=== PATIENT | male | born 1975 | race Caucasian/White ===

== ENCOUNTER 2016-03-30 14:48 | Emergency (ER) | payer OTHER ==
--- NOTE | 2016-03-30 16:38 | ED ORDER SUMMARY ---
..... Patient: BESSIE MYLES JR OrderSheet [facility] VisitID: [id number] [address] [place] [address] 41y, M Registration Date/Time: 03/30/2016 ORDER SHEET Weight: 129.2 kg (stated) Allergies: None GENERAL ORDERS: Wound Irrigation (15:43 03/30/2016 EKoroleva P.A.-C) (16:16 LNations ER Tech1) Finger Left (2) Urgent (15:43 03/30/2016 EKoroleva P.A.-C) (16:01 MCampbell) MEDICATION ORDERS: Tdap IM 0.5 mL (NOW, per protocol) (15:42 03/30/2016 EKoroleva P.A.-C) (17:04 Brigida R.N.) Ancef IM 2 gm (NOW) (17:11 03/30/2016 EKoroleva P.A.-C) (18:04 Lam) IV FLUIDS: ORDER SHEET NOTES: [Electronically signed by Janel Herrera (18:40 03/30/2016)] [Electronically signed by Larisa LoboARobin-Rema (18:59 03/30/2016)] [Electronically locked/signed by Janel Herrera (18:40 03/30/2016)]
--- NOTE | 2016-03-30 16:38 | ED NURSING NOTES ---
Clinical Report - Nurses [facility] [address] [place] [address] 03/30/2016 14:51 [id number] Triage time 15:08 Mar 30 2016. Acuity: LEVEL 4. Chief Complaint: INJURY TO LEFT HAND. 15:13 03/30/16. Alert. No acute distress. ALISA COMA SCORE: [place] Coma Scale: 15- eyes open spontaneously (4); best verbal response- oriented x 4 (5); best motor response- obeys commands (6). --15:13 Olinda Cole 15:08 03/30/16. BP: 148/107. HR: 85. RR: 18. O2 saturation: 99% on room air. Temp: 98.1 F (oral). Pain level now: 08/30. --15:13 Olinda Cole. Weight: 129.2 kg stated. Height/Length: 70 inches Per Patient. BMI: 40.9. --15:11 Olinda Cole. Medications Losartan Potassium Oral 25 mg, daily. --15:10 Olinda Cole MetFORMIN HCl Oral. --15:10 Olinda Cole. Medication/allergy information source: the patient. --15:13 Olinda Cole. Allergies None. --15:10 Olinda Cole. History Arrived by private vehicle. Historian: patient. Unaccompanied. Primary physician ([place]). This occurred just prior to arrival. Occurred at work. He sustained a laceration. 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 No neck pain, weakness or numbness. 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 PAST MEDICAL HX: Diabetes mellitus. Hypertension. No history of heart disease or lung disease. Tetanus immunization status is not up-to-date. SOCIAL HX: Never smoker. Alcohol use; consumes two beers a week. No drug use. FALL RISK ASSESSMENT: Fall risk assessment completed. No fall risk identified. NUTRITIONAL RISK ASSESSMENT: The nutritional risk assessment revealed no deficiencies. FUNCTIONAL ASSESSMENT: Functional assessment: no impairments noted. LEARNING NEEDS ASSESSMENT: The learning needs assessment revealed no barriers. SKIN INTEGRITY ASSESSMENT: Skin integrity risk assessment completed. No skin integrity risk identified. --15:13 Olinda Cole. PROBLEMS: Lumbar Strain. Benign Positional Vertigo. Hypertension. Diabetes Mellitus. --15:10 Olinda Cole. ADDITIONAL SURGERIES: Cyst removed from wrist. --15:10 Olinda Cole. Assessment The patient states feels the same. GENERAL / NEURO / PSYCH: Alert. Oriented X 4. Appears in no acute distress. Patient appears calm and cooperative. RESPIRATORY: Respirations not labored. CVS: Capillary refill less than 2 seconds. SKIN: Mucous membranes are pink. Skin is warm and dry. --15:13 Olinda Cole. Interventions ID band on patient. --15:13 Olinda Cole. PHYSICAL ASSESSMENT Ambulatory to room. GENERAL / NEURO / PSYCH: Oriented X 4. Alert. Appears in no acute distress. EXTREMITIES: Capillary refill is less than 2 seconds in the extremities. Extremity pulses are within normal limits. SKIN: Skin is warm and dry. --17:06 Daya Dudley R.N. NURSING PROGRESS NOTES Wound cleansed with sterile saline and chlorhexidine. --15:58 Hillary Dominique ER Tech1 Aluminum-foam splint applied by tech (ointment to finger splint held with coban). --16:17 Hillary Dominique ER Tech1 17:04 03/30/2016 TDAP IM 0.5 mL given. (Lot#: [id number], expiration date: 11/25/2017, Slurry Control Operator Helper: sanofi pasteur). Given in the left deltoid. --17:04 Daya Dudley R.N. 18:04 03/30/2016 Ancef (CeFAZolin Sodium) IM 2 gm given. Given in the right gluteus fabiola and left gluteus fabiola (split dose). Allergies verified and confirmed 5 rights. --18:04 Janel Herrera The patient has had no adverse reaction. Overall patient status is the same- he states feels the same. --18:39 Janel Herrera. DISPOSITION / DISCHARGE Departure time: 17:Mar 30 2016. Condition at departure: improved and stable. No learning barriers present. Discharge instructions provided and reviewed with the patient. Patient verbalized understanding. Written instructions provided in Stateless. The patient was discharged by the physician. He was discharged home and accompanied by spouse. He left the Emergency Department ambulatory and via private vehicle. Patient driving. --17:07 Daya Dudley R.N. Condition at departure: unchanged and stable. No learning barriers present. Discharge instructions provided and reviewed with the patient. Reviewed medication(s). Work note given. Patient verbalized understanding. Written instructions provided in Stateless. The patient was discharged by the physician minister assistant. He was discharged home. He left the Emergency Department ambulatory and via private vehicle. Patient driving. --18:40 Janel Herrera Departure time: 1837. --18:40 Janel Herrera. Locked/Released at 03/30/2016 18:40 by Janel Herrera,
--- NOTE | 2016-03-30 16:38 | ED NURSING NOTES ---
Clinical Report - Nurses [facility] [address] [place] [address] 03/30/2016 14:51 [id number] TRI[facility] Triage time 15:08 Mar 30 2016. Acuity: LEVEL 4. Chief Complaint: INJURY TO LEFT HAND. 15:13 03/30/16. Alert. No acute distress. ALISA COMA SCORE: [place] Coma Scale: 15- eyes open spontaneously (4); best verbal response- oriented x 4 (5); best motor response- obeys commands (6). --15:13 Olinda Cole 15:08 03/30/16. BP: 148/107. HR: 85. RR: 18. O2 saturation: 99% on room air. Temp: 98.1 F (oral). Pain level now: 08/30. --15:13 Olinda Cole. Weight: 129.2 kg stated. Height/Length: 70 inches Per Patient. BMI: 40.9. --15:11 Olinda Cole. Medications Losartan Potassium Oral 25 mg, daily. --15:10 Olinda Cole MetFORMIN HCl Oral. --15:10 Olinda Cole. Medication/allergy information source: the patient. --15:13 Olinda Cole. Allergies None. --15:10 Olinda Cole. History Arrived by private vehicle. Historian: patient. Unaccompanied. Primary physician ([place]). This occurred just prior to arrival. Occurred at work. He sustained a laceration. 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 No neck pain, weakness or numbness. 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 PAST MEDICAL HX: Diabetes mellitus. Hypertension. No history of heart disease or lung disease. Tetanus immunization status is not up-to-date. SOCIAL HX: Never smoker. Alcohol use; consumes two beers a week. No drug use. FALL RISK ASSESSMENT: Fall risk assessment completed. No fall risk identified. NUTRITIONAL RISK ASSESSMENT: The nutritional risk assessment revealed no deficiencies. FUNCTIONAL ASSESSMENT: Functional assessment: no impairments noted. LEARNING NEEDS ASSESSMENT: The learning needs assessment revealed no barriers. SKIN INTEGRITY ASSESSMENT: Skin integrity risk assessment completed. No skin integrity risk identified. --15:13 Olinda Cole. PROBLEMS: Lumbar Strain. Benign Positional Vertigo. Hypertension. Diabetes Mellitus. --15:10 Olinda Cole. ADDITIONAL SURGERIES: Cyst removed from wrist. --15:10 Olinda Cole. Assessment The patient states feels the same. GENERAL / NEURO / PSYCH: Alert. Oriented X 4. Appears in no acute distress. Patient appears calm and cooperative. RESPIRATORY: Respirations not labored. CVS: Capillary refill less than 2 seconds. SKIN: Mucous membranes are pink. Skin is warm and dry. --15:13 Olinda Cole. Interventions ID band on patient. --15:13 Olinda Cole. PHYSICAL ASSESSMENT Ambulatory to room. GENERAL / NEURO / PSYCH: Oriented X 4. Alert. Appears in no acute distress. EXTREMITIES: Capillary refill is less than 2 seconds in the extremities. Extremity pulses are within normal limits. SKIN: Skin is warm and dry. --17:06 Daya Dudley R.N. NURSING PROGRESS NOTES Wound cleansed with sterile saline and chlorhexidine. --15:58 Hillary Dominique ER Tech1 Aluminum-foam splint applied by tech (ointment to finger splint held with coban). --16:17 Hillary Dominique ER Tech1 17:04 03/30/2016 TDAP IM 0.5 mL given. (Lot#: [id number], expiration date: 11/25/2017, Template Clerk: sanofi pasteur). Given in the left deltoid. --17:04 Daya Dudley R.N. 18:04 03/30/2016 Ancef (CeFAZolin Sodium) IM 2 gm given. Given in the right gluteus fabiola and left gluteus fabiola (split dose). Allergies verified and confirmed 5 rights. --18:04 Janel Herrera The patient has had no adverse reaction. Overall patient status is the same- he states feels the same. --18:39 Janel Herrera. DISPOSITION / DISCHARGE Departure time: 17:Mar 30 2016. Condition at departure: improved and stable. No learning barriers present. Discharge instructions provided and reviewed with the patient. Patient verbalized understanding. Written instructions provided in Liberian. The patient was discharged by the physician. He was discharged home and accompanied by spouse. He left the Emergency Department ambulatory and via private vehicle. Patient driving. --17:07 Daya Dudley R.N. Condition at departure: unchanged and stable. No learning barriers present. Discharge instructions provided and reviewed with the patient. Reviewed medication(s). Work note given. Patient verbalized understanding. Written instructions provided in [place]ian. The patient was discharged by the physician assistant associate full professor. He was discharged home. He left the Emergency Department ambulatory and via private vehicle. Patient driving. --18:40 Janel Herrera Departure time: 1837. --18:40 Janel Herrera. Locked/Released at 03/30/2016 18:40 by Janel Herrera,
--- NOTE | 2016-03-30 16:38 | ED ORDER SUMMARY ---
..... Patient: BESSIE MYLES JR OrderSheet [facility] VisitID: [id number] [address] [place] [address] 41y, M Registration Date/Time: 03/30/2016 ORDER SHEET Weight: 129.2 kg (stated) Allergies: None GENERAL ORDERS: Wound Irrigation (15:43 03/30/2016 EKoroleva P.A.-C) (16:16 LNations ER Tech1) Finger Left (2) Urgent (15:43 03/30/2016 EKoroleva P.A.-C) (16:01 MCampbell) MEDICATION ORDERS: Tdap IM 0.5 mL (NOW, per protocol) (15:42 03/30/2016 EKoroleva P.A.-C) (17:04 Brigida R.N.) Ancef IM 2 gm (NOW) (17:11 03/30/2016 EKoroleva P.A.-C) (18:04 Lam) IV FLUIDS: ORDER SHEET NOTES: [Electronically signed by Janel Herrera (18:40 03/30/2016)] [Electronically signed by Larisa LoboARobin-Rema (18:59 03/30/2016)] [Electronically locked/signed by Janel Herrera (18:40 03/30/2016)]
--- NOTE | 2016-03-30 16:38 | ED CLINICAL REPORT ---
Clinical Report - Physicians/Mid Levels [facility] [address] [place] [address] 03/30/2016 14:51 [id number] Time Seen: 1529Mar 30 2016. Arrived- By private vehicle. Historian- patient. HISTORY OF PRESENT ILLNESS Chief Complaint: Injury to the left index finger. The injury happened just prior to arrival. The patient sustained a crush injury. Occurred at work. Patient is experiencing mild pain. Patient denies injury to the head or neck. 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 Reports some pain with movement. Bleeding. Dressing applied. No prior injury to the area. Denies any other injury. Denies any loss of sensation.). REVIEW OF SYSTEMS The patient sustained a laceration. No numbness. All systems otherwise negative, except as recorded above. PAST HISTORY The patient's dominant hand is the right. He has not had a prior injury to the same area. Tetanus immunization status is unknown. SOCIAL HISTORY Never smoker. Alcohol use. No drug use. ADDITIONAL NOTES The nursing notes have been reviewed. PHYSICAL EXAM Vital Signs: 03/30/2016 15:08 BP: 148/107. HR: 85. RR: 18. O2 saturation: 99%. Temp: 98.1 F. Pain level now: 7/10. Appearance: Alert. Head: Head atraumatic. CVS: Normal heart rate and rhythm. Heart sounds normal. Respiratory: No respiratory distress. Breath sounds normal. Skin: Skin warm. Extremities: Left hand web space. No tenderness or swelling. Left index finger: mild tenderness and 1.0 cm laceration of the dorsal aspect and PIP joint. No puncture wound. No limitation in movement. No subungual hematoma or amputation present. No wrist injury. Neuro, Vascular and Tendons: Vascular status intact. Motor intact. LABS, X-RAYS, AND EKG Lt UE Digits X-ray: (IMPRESSION: 1. Chip fracture proximal phalanx second digit. Electronically Final signed by:Sundar Guillen MD 03/30/2016 4:54:15 PM). PROGRESS AND PROCEDURES Laceration Repair: Time: 2016. Location: left index finger. Time-out completed immediately before the procedure. Length: 1.5cm. Complexity: simple (local anesthesia used and sutured). Wound depth/shape- linear and involving fascia. Wound is clean. No sensory deficit distally. Tendon not examined. Anesthesia provided by digital block using 0.25% Marcaine. Prepped with Betadine. Wound explored, cleansed and irrigated. Subcutaneous closure: interrupted 5-0 (5 sutures non absorb). Post-procedure: he is stable and there are no complications. Bleeding is controlled and neuro-vascular status is intact distal to the wound. Dressing applied. Tetanus immunization given. Splint Application: Time: 1800. Aluminum-foam dorsal splint applied to index finger. Splint applied by tech with direct supervision by me. Reassessed extremity following splint application. Neurovascular intact. Follow-up recommended within 3 days. Course of Care: suspectd fx, now open fx, given im abx, patient understands need for ortho f/u full rom, good sensation and distal strength. Patient is stable. Symptoms better. Patient/family counseled. Disposition: Discharged. CLINICAL IMPRESSION Open middle phalanx fracture of the left index finger. Single deep laceration to the left index finger. INSTRUCTIONS Elevate affected areas above chest level. Protect wound and keep wound area clean. Apply bacitracin twice daily. Sutures should be removed in six days. Limit use of your left hand for nine days. (ORTHO Follow up, do not remove splint: [phone]). Prescription Medications: Hydrocodone/APAP 5mg / 325mg: take 1 orally every 6 hours. Dispense twelve (12). No refill. Cephalexin 500 mg: take 1 capsule orally every 8 hours for 10 days. No refill. OTC Medications: Take OTC medications according to label instructions. Available over the counter. Acetaminophen (available over the counter): take according to label instructions. Motrin (available over the counter): take according to label instructions. Follow-up: Follow up with your doctor in six days for suture removal. (Electronically signed by Larisa Lobo P.A.-C 03/30/2016 18:59)
--- NOTE | 2016-03-30 16:38 | ED CLINICAL REPORT ---
Clinical Report - Physicians/Mid Levels [facility] [address] [place] [address] 03/30/2016 14:51 [id number] Time Seen: 1529Mar 30 2016. Arrived- By private vehicle. Historian- patient. HISTORY OF PRESENT ILLNESS Chief Complaint: Injury to the left index finger. The injury happened just prior to arrival. The patient sustained a crush injury. Occurred at work. Patient is experiencing mild pain. Patient denies injury to the head or neck. 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 Reports some pain with movement. Bleeding. Dressing applied. No prior injury to the area. Denies any other injury. Denies any loss of sensation.). REVIEW OF SYSTEMS The patient sustained a laceration. No numbness. All systems otherwise negative, except as recorded above. PAST HISTORY The patient's dominant hand is the right. He has not had a prior injury to the same area. Tetanus immunization status is unknown. SOCIAL HISTORY Never smoker. Alcohol use. No drug use. ADDITIONAL NOTES The nursing notes have been reviewed. PHYSICAL EXAM Vital Signs: 03/30/2016 15:08 BP: 148/107. HR: 85. RR: 18. O2 saturation: 99%. Temp: 98.1 F. Pain level now: 7/10. Appearance: Alert. Head: Head atraumatic. CVS: Normal heart rate and rhythm. Heart sounds normal. Respiratory: No respiratory distress. Breath sounds normal. Skin: Skin warm. Extremities: Left hand web space. No tenderness or swelling. Left index finger: mild tenderness and 1.0 cm laceration of the dorsal aspect and PIP joint. No puncture wound. No limitation in movement. No subungual hematoma or amputation present. No wrist injury. Neuro, Vascular and Tendons: Vascular status intact. Motor intact. LABS, X-RAYS, AND EKG Lt UE Digits X-ray: (IMPRESSION: 1. Chip fracture proximal phalanx second digit. Electronically Final signed by:Sundar Guillen MD 03/30/2016 4:54:15 PM). PROGRESS AND PROCEDURES Laceration Repair: Time: 2016. Location: left index finger. Time-out completed immediately before the procedure. Length: 1.5cm. Complexity: simple (local anesthesia used and sutured). Wound depth/shape- linear and involving fascia. Wound is clean. No sensory deficit distally. Tendon not examined. Anesthesia provided by digital block using 0.25% Marcaine. Prepped with Betadine. Wound explored, cleansed and irrigated. Subcutaneous closure: interrupted 5-0 (5 sutures non absorb). Post-procedure: he is stable and there are no complications. Bleeding is controlled and neuro-vascular status is intact distal to the wound. Dressing applied. Tetanus immunization given. Splint Application: Time: 1800. Aluminum-foam dorsal splint applied to index finger. Splint applied by tech with direct supervision by me. Reassessed extremity following splint application. Neurovascular intact. Follow-up recommended within 3 days. Course of Care: suspectd fx, now open fx, given im abx, patient understands need for ortho f/u full rom, good sensation and distal strength. Patient is stable. Symptoms better. Patient/family counseled. Disposition: Discharged. CLINICAL IMPRESSION Open middle phalanx fracture of the left index finger. Single deep laceration to the left index finger. INSTRUCTIONS Elevate affected areas above chest level. Protect wound and keep wound area clean. Apply bacitracin twice daily. Sutures should be removed in six days. Limit use of your left hand for nine days. (ORTHO Follow up, do not remove splint: [phone]). Prescription Medications: Hydrocodone/APAP 5mg / 325mg: take 1 orally every 6 hours. Dispense twelve (12). No refill. Cephalexin 500 mg: take 1 capsule orally every 8 hours for 10 days. No refill. OTC Medications: Take OTC medications according to label instructions. Available over the counter. Acetaminophen (available over the counter): take according to label instructions. Motrin (available over the counter): take according to label instructions. Follow-up: Follow up with your doctor in six days for suture removal. (Electronically signed by Larisa Lobo P.A.-C 03/30/2016 18:59)
--- NOTE | 2016-03-30 16:50 | DIAGNOSTIC IMAGING REPORT ---
PROCEDURE: XR FINGER - LEFT INDICATION: TRAUMA/INJURY TECHNIQUE: Three views. COMPARISON: None. FINDINGS: Small 3 mm chip fracture off the proximal phalanx of the second digit adjacent to the PIP joint laterally. IMPRESSION: 1. Chip fracture proximal phalanx second digit.
--- NOTE | 2016-03-30 19:00 | ED MAR SUMMARY ---
..... Medication Administration Record [facility] [address] [place] [address] Patient: BESSIE MYLES Visit ID: [id number] 41y, M Weight: 129.2 kg Height/Length: 70 in BMI: 40.9 ALLERGIES: None Given 17:04 03/30/2016 Daya Dudley R.N. Medication Administered: TDAP [IM], Dose: 0.5 mL IM. Medication Ordered: Tdap IM 0.5 mL (NOW, per protocol). Given 18:04 03/30/2016 Janel Herrera, Medication Administered: ANCEF [IM] (CEFAZOLIN SODIUM), Dose: 2 gm IM. Medication Ordered: Ancef IM 2 gm (NOW).
--- NOTE | 2016-03-30 19:00 | ED MED RECONCILIATION SUMMARY ---
Patient: BESSIE MYLES Medication Reconciliation Report [facility] VisitID: [id number] [address] [place] [address] 41y, M Registration Date/Time: 03/30/2016 Weight: 129.2 kg Height/Length: 70 in. BMI: 40.9 ALLERGIES: None The patient's Home Medications are listed below: THE FOLLOWING MEDICATIONS NEED TO BE RECONCILED: Losartan Potassium Oral 25 mg, daily MetFORMIN HCl Oral The source(s) of the original Home Medication information: patient The following Medications were given to the patient in the Emergency Department: TDAP [IM] IM 0.5 mL, administered: 03/30/2016 5:04:00 PM Ancef [IM] IM 2 gm, administered: 03/30/2016 6:04:00 PM The following Medications were prescribed to the patient: Take OTC medications according to label instructions. Available over the counter. -- Larisa Lobo, P.A.-C Acetaminophen (available over the counter): take according to label instructions. -- Larisa Lobo, P.A.-C Motrin (available over the counter): take according to label instructions. -- Larisa Lobo, P.A.-C Hydrocodone/APAP 5mg / 325mg: take 1 orally every 6 hours. Dispense twelve (12). No refill. -- Larisa Lobo, P.A.-C Cephalexin 500 mg: take 1 capsule orally every 8 hours for 10 days. No refill. -- Larisa Lobo, P.A.-C
--- NOTE | 2016-03-30 19:00 | ED MAR SUMMARY ---
..... Medication Administration Record [facility] [address] [address] Patient: BESSIE MYLES Visit ID: [id number] 41y, M Weight: 129.2 kg Height/Length: 70 in BMI: 40.9 ALLERGIES: None Given 17:04 03/30/2016 Daya Dudley R.N. Medication Administered: TDAP [IM], Dose: 0.5 mL IM. Medication Ordered: Tdap IM 0.5 mL (NOW, per protocol). Given 18:04 03/30/2016 Janel Herrera, Medication Administered: ANCEF [IM] (CEFAZOLIN SODIUM), Dose: 2 gm IM. Medication Ordered: Ancef IM 2 gm (NOW).
--- NOTE | 2016-03-30 19:00 | ED MED RECONCILIATION SUMMARY ---
Patient: BESSIE MYLES Medication Reconciliation Report [facility] VisitID: [id number] [address] [place] [address] 41y, M Registration Date/Time: 03/30/2016 Weight: 129.2 kg Height/Length: 70 in. BMI: 40.9 ALLERGIES: None The patient's Home Medications are listed below: THE FOLLOWING MEDICATIONS NEED TO BE RECONCILED: Losartan Potassium Oral 25 mg, daily MetFORMIN HCl Oral The source(s) of the original Home Medication information: patient The following Medications were given to the patient in the Emergency Department: TDAP [IM] IM 0.5 mL, administered: 03/30/2016 5:04:00 PM Ancef [IM] IM 2 gm, administered: 03/30/2016 6:04:00 PM The following Medications were prescribed to the patient: Take OTC medications according to label instructions. Available over the counter. -- Larisa Lobo, P.A.-C Acetaminophen (available over the counter): take according to label instructions. -- Larisa Lobo, P.A.-C Motrin (available over the counter): take according to label instructions. -- Larisa Lobo, P.A.-C Hydrocodone/APAP 5mg / 325mg: take 1 orally every 6 hours. Dispense twelve (12). No refill. -- Larisa Lobo, P.A.-C Cephalexin 500 mg: take 1 capsule orally every 8 hours for 10 days. No refill. -- Larisa Lobo, P.A.-C
--- NOTE | 2016-03-30 19:00 | ED DISCHARGE INSTRUCTIONS ---
Patient: BESSIE MYLES JR General Instructions [facility] VisitID: [id number] [place] [address] 41y, M Registration Date/Time: 03/30/2016 Open middle phalanx fracture of the left index finger. Single deep laceration to the left index finger. INSTRUCTIONS Elevate affected areas above chest level. Protect wound and keep wound area clean. Apply bacitracin twice daily. Sutures should be removed in six days. Limit use of your left hand for nine days. (ORTHO Follow up, do not remove splint: [phone]). Prescription Medications: Hydrocodone/APAP 5mg / 325mg: take 1 orally every 6 hours. Dispense twelve (12). No refill. Cephalexin 500 mg: take 1 capsule orally every 8 hours for 10 days. No refill. OTC Medications: Take OTC medications according to label instructions. Available over the counter. Acetaminophen (available over the counter): take according to label instructions. Motrin (available over the counter): take according to label instructions. Follow-up: Follow up with your doctor in six days for suture removal. ADDITIONAL INFORMATION Laceration (All Closures) Alaceration is a cut through the skin. This will usually require stitches (sutures) or kory if it is deep. Minor cuts may be treated with a surgical tape closure orskin glue. Home care The following guidelines will help you care for your laceration at home: Extremity, face, or trunk wounds Keep the wound clean and dry. If a bandage was applied and it becomes wet or dirty, replace it. Otherwise, leave it in place for the first 24 hours. If stitches or kory were used, clean the wound daily. After removing the bandage, wash the area with soap and water. Use a wet cotton swab to loosen and remove any blood or crust that forms. The doctor may prescribe an antibiotic cream or ointment to prevent infection. Do not stop taking this medication until you have finished the prescribed course or the doctor tells you to stop. The doctor may also prescribe medications for pain. Follow the doctors instructions for taking these medications. You may remove the bandage to shower as usual after the first 24 hours, but do not soak the area in water (no swimming) until the stitches or kory are removed. If surgical tape was used, keep the area clean and dry. If it becomes wet, blot it dry with a towel. If skin glue was used, do not scratch, rub, or pick at the adhesive film. Do not place tape directly over the film. Do not apply liquid, ointment, or creams to the wound while the film is in place. Do not clean the wound with peroxide and do not apply ointments. Avoid activities that cause heavy sweating until the film has fallen off. Protect the wound from prolonged exposure to sunlight or tanning lamps. You may shower as usual but do not soak the wound in water (no baths or swimming). The film will fall off by itself in 510 days. Scalp wounds During the first two days, you may carefully rinse your hair in the shower to remove blood, glass or dirt particles. After two days, you may shower and shampoo your hair normally. Do not soak your scalp in the tub or go swimming until the stitches or kory have been removed. Talk with your doctor before applying any antibiotic ointment to the wound. Mouth wounds Eat soft foods to reduce pain. If the cut is inside of your mouth, clean by rinsing after each meal and at bedtime with a mixture of equal parts water and hydrogen peroxide (do not swallow!). Or, you can use a cotton swab to directly apply hydrogen peroxide onto the cut. Mouth wounds can be painful when eating. You may use an [id number] local numbing solution for pain relief. If this is not available, you may use any numbing solution for teething babies. You may apply this directly to the sores with a cotton-tip swab or with your finger. Follow-up care Follow up with your health care provider. Most skin wounds heal within ten days. Mouth and facial wounds heal within five days. However, even with proper treatment, a wound infection may sometimes occur. Therefore, you should check the wound daily for signs of infection listed below. Stitches should be removed from the face within five days; stitches and kory should be removed from other parts of the body within 714 days. If dissolving stitches were used in the mouth, these will fall out or dissolve without the need for removal. If tape closures were used, remove them yourself if they have not fallen off after 7 days. Ifskin glue was used, the film will fall off by itself in 510 days. When to seek medical care Get prompt medical attention if any of these occur: Bleeding not controlled by direct pressure Signs of infection, including increasing pain in the wound, increasing wound redness or swelling, or pus coming from the wound Fever of 100.4F (38C) or higher, or as directed by your health care provider Stitches or kory come apart or fall out or surgical tape falls off before 7 days Wound edges re-open Laceration, Extremity (Sutures, [place], Or Tape) A laceration is a cut through the skin. This will usually require stitches (sutures) or kory if it is deep. Minor cuts may be treated with surgical tape closures. Home care The following guidelines will help you care for your laceration at home: Keep the wound clean and dry. If a bandage was applied and it becomes wet or dirty, replace it. Otherwise, leave it in place for the first 24 hours, then change it once a day or as directed. If stitches or kory were used, clean the wound daily: After removing the bandage, wash the area with soap and water. Use a wet cotton swab to loosen and remove any blood or crust that forms. After cleaning, keep the wound clean and dry. Talk with your doctor before applying any antibiotic ointment to the wound. Reapply the bandage. You may remove the bandage to shower as usual after the first 24 hours, but do not soak the area in water (no swimming) until the stitches or kory are removed. If surgical tape closures were used, keep the area clean and dry. If it becomes wet, blot it dry with a towel. The doctor may prescribe an antibiotic cream or ointment to prevent infection. Do not stop taking this medication until you have finished the prescribed course or the doctor tells you to stop. The doctor may also prescribe medications for pain. Follow the doctors instructions for taking these medications. If you have chronic liver or kidney disease or ever had a stomach ulcer or GI bleeding, talk with your doctor before using these medicines. Follow-up care Follow up with your health care provider. Most skin wounds heal within ten days. However, an infection may sometimes occur despite proper treatment. Therefore, check the wound daily for the signs of infection listed below. Stitches and kory should be removed within 714 days. If surgical tape closures were used, you may remove them after 10 days, if they have not fallen off by then. Notify your doctor if you notice persistent numbness or weakness in the injured extremity. (Note:A radiologist will review any X-rays that were taken. We will notify you of any new findings that may affect your care.) When to seek medical care Get prompt medical attention if any of these occur: Increasing pain in the wound Redness, swelling, or pus coming from the wound Fever of 100.4F (38C) or higher, or as directed by your health care provider If stitches or kory come apart or fall out before your next appointment If the surgical tape closures fall off within seven days, or the wound edges re-open Bleeding not controlled by direct pressure Fracture:Finger [Open] You have a fracture of your finger (broken finger) with a nearby cut, puncture or deep scrape. This causes local pain, swelling and bruising. Because of the open injury, there is a risk of infection in the skin and bone. Antibiotics will be used to lower the risk of infection. This injury takes about four weeks to heal. Finger injuries are often treated with a splint, cast or by taping the injured finger to the next one ("robel taping"). This protects the injured finger and holds the bone in position while it heals. More serious fractures may require surgery. If the FINGERNAIL has been severely injured, it will probably fall off in 1-2 weeks. A new fingernail will usually start to grow back within a month. Home Care: Keep your hand elevated to reduce pain and swelling. When sitting or lying down elevate your arm above the level of your heart. You can do this by placing your arm on a pillow that rests on your chest or on a pillow at your side. This is most important during the first 48 hours after injury. Apply an ice pack (ice cubes in a plastic bag, wrapped in a towel) over the injured area for 20 minutes every 1-2 hours the first day for pain relief. Continue this 3-4 times a day until the pain and swelling goes away. Keep the cast/splint completely dry at all times. Bathe with your cast/splint out of the water, protected with a large plastic bag, rubber-banded at the top end. If a fiberglass cast/splint gets wet, you can dry it with a hair-dryer. If robel tape was applied and it becomes wet or dirty, change it. You may replace it with paper, plastic or cloth tape. Cloth tape and paper tapes must be kept dry. Keep the robel tape in place for at least four weeks. You may use acetaminophen (Tylenol) or ibuprofen (Motrin, Advil) to control pain, unless another pain medicine was prescribed. [ NOTE : If you have chronic liver or kidney disease or ever had a stomach ulcer or GI bleeding, talk with your doctor before using these medicines.] Take all antibiotics until finished. Follow Up with your doctor within one week, or as advised by our staff, to be sure the bone is healing properly, . [NOTE: A radiologist will review any X-rays that were taken. We will notify you of any new findings that may affect your care.] Return Promptly or contact your doctor if any of the following occur: The plaster cast or splint becomes wet or soft The fiberglass cast or splint remains wet for more than 24 hours Pain or swelling increase Finger becomes cold, blue, numb or tingly Redness, warmth, swelling, drainage from the wound or foul odor from a cast or splint Fever of 100.4F (38C) or higher, or as directed by your healthcare provider Hydrocodone Bitartrate, Acetaminophen Oral tablet What is this medicine? ACETAMINOPHEN; HYDROCODONE (a set a NICOL donald fen; sarthak droe KOE done) is a pain reliever. It is used to treat mild to moderate pain. How should I use this medicine? Take this medicine by mouth. Swallow it with a full glass of water. Follow the directions on the prescription label. If the medicine upsets your stomach, take the medicine with food or milk. Do not take more than you are told to take. Talk to your senior information systems architect regarding the use of this medicine in children. This medicine is not approved for use in children. What side effects may I notice from receiving this medicine? Side effects that you should report to your doctor or health direct care professional as soon as possible: allergic reactions like skin rash, itching or hives, swelling of the face, lips, or tongue breathing problems confusion feeling faint or lightheaded, falls stomach pain yellowing of the eyes or skin Side effects that usually do not require medical attention (report to your doctor or health direct care professional if they continue or are bothersome): nausea, vomiting stomach upset What may interact with this medicine? alcohol antihistamines isoniazid medicines for depression, anxiety, or psychotic disturbances medicines for sleep muscle relaxants naltrexone narcotic medicines (opiates) for pain phenobarbital ritonavir tramadol What if I miss a dose? If you miss a dose, take it as soon as you can. If it is almost time for your next dose, take only that dose. Do not take double or extra doses. Where should I keep my medicine? Keep out of the reach of children. This medicine can be abused. Keep your medicine in a safe place to protect it from theft. Do not share this medicine with anyone. Selling or giving away this medicine is dangerous and against the law. Store at room temperature between 15 and 30 degrees C (59 and 86 degrees F). Protect from light. Keep container tightly closed. Throw away any unused medicine after the expiration date. Discard unused medicine and used packaging carefully. Pets and children can be harmed if they find used or lost packages. What should I tell my health care provider before I take this medicine? They need to know if you have any of these conditions: brain tumor Crohn's disease, inflammatory bowel disease, or ulcerative colitis drink more than 3 alcohol-containing drinks per day drug abuse or addiction head injury heart or circulation problems kidney disease or problems going to the bathroom liver disease lung disease, asthma, or breathing problems an unusual or allergic reaction to acetaminophen, hydrocodone, other opioid analgesics, other medicines, foods, dyes, or preservatives or trying to get breast-feeding What should I watch for while using this medicine? Tell your doctor or health direct care professional if your pain does not go away, if it gets worse, or if you have new or a different type of pain. You may develop tolerance to the medicine. Tolerance means that you will need a higher dose of the medicine for pain relief. Tolerance is normal and is expected if you take the medicine for a long time. Do not suddenly stop taking your medicine because you may develop a severe reaction. Your body becomes used to the medicine. This does NOT mean you are addicted. Addiction is a behavior related to getting and using a drug for a non-medical reason. If you have pain, you have a medical reason to take pain medicine. Your doctor will tell you how much medicine to take. If your doctor wants you to stop the medicine, the dose will be slowly lowered over time to avoid any side effects. You may get drowsy or dizzy when you first start taking the medicine or change doses. Do not drive, use machinery, or do anything that may be dangerous until you know how the medicine affects you. Stand or sit up slowly. There are different types of narcotic medicines (opiates) for pain. If you take more than one type at the same time, you may have more side effects. Give your health care provider a list of all medicines you use. Your doctor will tell you how much medicine to take. Do not take more medicine than directed. Call emergency for help if you have problems breathing. The medicine will cause constipation. Try to have a bowel movement at least every 2 to 3 days. If you do not have a bowel movement for 3 days, call your doctor or health direct care professional. Too much acetaminophen can be very dangerous. Do not take Tylenol (acetaminophen) or medicines that contain acetaminophen with this medicine. Many non-prescription medicines contain acetaminophen. Always read the labels carefully. Cephalexin Monohydrate Oral tablet What is this medicine? CEPHALEXIN (sef a ADOLPH in) is a cephalosporin antibiotic. It is used to treat certain kinds of bacterial infections It will not work for colds, flu, or other viral infections. How should I use this medicine? Take this medicine by mouth with a full glass of water. Follow the directions on the prescription label. This medicine can be taken with or without food. Take your medicine at regular intervals. Do not take your medicine more often than directed. Take all of your medicine as directed even if you think you are better. Do not skip doses or stop your medicine early. Talk to your senior information systems architect regarding the use of this medicine in children. While this drug may be prescribed for selected conditions, precautions do apply. What side effects may I notice from receiving this medicine? Side effects that you should report to your doctor or health direct care professional as soon as possible: allergic reactions like skin rash, itching or hives, swelling of the face, lips, or tongue breathing problems pain or trouble passing urine redness, blistering, peeling or loosening of the skin, including inside the mouth severe or watery diarrhea unusually weak or tired yellowing of the eyes, skin Side effects that usually do not require medical attention (report to your doctor or health direct care professional if they continue or are bothersome): gas or heartburn genital or anal irritation headache joint or muscle pain nausea, vomiting What may interact with this medicine? probenecid some other antibiotics What if I miss a dose? If you miss a dose, take it as soon as you can. If it is almost time for your next dose, take only that dose. Do not take double or extra doses. There should be at least 4 to 6 hours between doses. Where should I keep my medicine? Keep out of the reach of children. Store at room temperature between 59 and 86 degrees F (15 and 30 degrees C). Throw away any unused medicine after the expiration date. What should I tell my health care provider before I take this medicine? They need to know if you have any of these conditions: kidney disease stomach or intestine problems, especially colitis an unusual or allergic reaction to cephalexin, other cephalosporins, penicillins, other antibiotics, medicines, foods, dyes or preservatives or trying to get breast-feeding What should I watch for while using this medicine? Tell your doctor or health direct care professional if your symptoms do not begin to improve in a few days. Do not treat diarrhea with over the counter products. Contact your doctor if you have diarrhea that lasts more than 2 days or if it is severe and watery. If you have diabetes, you may get a false-positive result for sugar in your urine. Check with your doctor or health direct care professional. You have been given the following additional information: Laceration, All Laceration, Extrem (Suture, Staple, Or Tape) Fracture, Finger (Open) Hydrocodone Bitartrate, Acetaminophen Oral tablet Cephalexin Monohydrate Oral tablet Limit use of your left hand for nine days. (Electronically signed by Larisa Lobo P.A.-C 03/30/2016 18:59)
== END 2016-03-30 18:38 | disposition home or self-care (01) ==
LOC: ED SRH 14:48
DX: S62.611B Displaced fracture of proximal phalanx of left index finger, initial encounter for open fracture (principal); W23.0XXA Caught, crushed, jammed, or pinched between moving objects, initial encounter; Y93.9 Activity, unspecified; Y92.9 Unspecified place or not applicable; Y99.0 Civilian activity done for income or pay; Z23 Encounter for immunization